=== PATIENT | female | born 1955 | race Caucasian/White ===

== ENCOUNTER → 2024-03-07 07:12 | Outpatient (REF) | payer MEDICARE, OTHER, SELFPAY | LOC: WDC 07:12 | PROVIDERS: ATTENDING PHYSICIAN Internal Medicine | DX: Z12.31 Encounter for screening mammogram for malignant neoplasm of breast (principal) | CPT/HCPCS: 77063; 77067 ==

== ENCOUNTER 2024-11-02 10:54 | Outpatient (RCR) | payer MEDICARE, OTHER, SELFPAY | END 2024-11-02 23:59 | disposition home or self-care (01) | LOC: RPT 10:54 | PROVIDERS: ATTENDING PHYSICIAN Clinical Nurse Specialist Acute Care; FAMILY PHYSICIAN Internal Medicine | DX: Z47.1 Aftercare following joint replacement surgery (principal); M17.11 Unilateral primary osteoarthritis, right knee; Z73.6 Limitation of activities due to disability; R26.89 Other abnormalities of gait and mobility; R20.0 Anesthesia of skin; Z96.651 Presence of right artificial knee joint | CPT/HCPCS: 97110; 97116; 97140; 97162 ==

== ENCOUNTER 2024-11-13 12:45 | Outpatient (RCR) | payer MEDICARE, OTHER, SELFPAY | END 2024-11-14 07:21 | disposition home or self-care (01) | LOC: RPT 12:45 | PROVIDERS: ATTENDING PHYSICIAN Clinical Nurse Specialist Acute Care; FAMILY PHYSICIAN Internal Medicine | DX: Z47.1 Aftercare following joint replacement surgery (principal); Z73.6 Limitation of activities due to disability; M17.11 Unilateral primary osteoarthritis, right knee; R20.0 Anesthesia of skin; R26.89 Other abnormalities of gait and mobility; Z96.651 Presence of right artificial knee joint | CPT/HCPCS: 97110; 97530 ==

== ENCOUNTER 2025-02-26 08:53 | Emergency (ER) | payer MEDICARE, OTHER, SELFPAY ==
[2025-02-26 08:57] VITALS: BP 188/108
--- NOTE | 2025-02-26 09:27 | ED.GENMED ---
History of Present Illness
General
Chief Complaint: Fall
Source: patient
Time Seen by Provider: 02/26/25 09:19
History of Present Illness
History of Present Illness:
This patient is a 69-year-old female who had her left knee replaced very recently and was placed on Eliquis. Her last dose was on Tuesday. In the evening of Tuesday, patient states that she lost her balance and fell, striking her head against the
door frame. She was able to get back up again. She did not want to come to the emergency department that time. However, since the event, she has been worried that she may have missed injury because she did not have an evaluation at that time.
She overall feels well. She was able to participate in PT today and actually came here directly after completing her PT next-door. She denies numbness, tingling, chest pain, shortness of breath, diplopia, dysarthria, imbalance, dizziness,
difficulty walking. She says the sides of her neck feel a little 'stiff' when she turns her head, and this is improving. She does not have a headache. No nausea or vomiting, no photophobia
Past History
Past History
ED Past Medical History: Hypercholesterolemia, Hypothyroidism and Other (AdenoCA lung stage four)
ED Past Surgical History: Orthopedic
Social History
Tobacco: Former smoker (Many years ago)
Alcohol: Occasional
Drug: None
Personal:
Living: with family
Employment: Employed
Phy Exam
Physical Exam
Physical Exam:
GENERAL: Alert , in no apparent distress
EYE: pupils equal and reactive, EOMI, no nystagmus, no photophobia
NECK: Supple, no significant adenopathy, no midline tenderness, spontaneously nods yes and no without hesitation.
ENT: o/p clr, mmm, no parker, no raccoon, no signs of head or facial injury noted on exam.
CARDIAC: Regular rate and rhythm .
LUNGS: Clear breath sounds bilaterally, no acute respiratory distress, no wheezes/rales/rhonchi
ABDOMEN: Soft, without focal tenderness, no r/g, no cvat
NEUROLOGICAL: Alert and oriented, no focal neuro deficits, gait normal, [id number] normal, motor 5 out of 5, sensory intact, cranial nerves II through XII intact
SKIN: Warm and dry, skin intact.
MUSCULOSKELETAL: No edema, well perfused.
PSYCH: Normal and appropriate interaction.
Course
Vital Signs
Initial and Last Documented VS:
Initial Vital Signs
Pulse Resp BP Pulse Ox
95 16 188/108 98
02/26/25 08:57 02/26/25 08:57 02/26/25 08:57 02/26/25 08:57
Last Documented Vital Signs
Temp Pulse Resp BP Pulse Ox
97.9 F 95 16 188/108 98
02/26/25 09:01 02/26/25 08:57 02/26/25 08:57 02/26/25 08:57 02/26/25 08:57
*Critical Care Note
Total Time (30-74mins, 75-104mins- exclusive of procedures): Not Applicable
Update Note
Update Note:
Patient presents to the Emergency Department with recent fall
Number and Complexity of Problems Addressed at the Encounter
� Chronic conditions affecting care:
� Acute Exacerbation and/or Progression of Chronic Illness:
� Differential Diagnosis includes: But not limited to concussion, contusion, subdural hematoma, etc. etc.
Amount and/or Complexity of Data to be Reviewed and Analyzed
� I performed an independent evaluation of and my interpretation is:
EKG:
CT:
Xrays:
Laboratory Studies:
Other:
� Review of other/old records reveals:
� Clinical information was obtained by an independent historian:
� Prescriptions/Medications Considered but not given:
� Further testing considered but not performed:
Risk of Complications and/or Morbidity or Mortality of Patient Management
� Social determinants of health affecting care:
� Discussion with other providers (PCP, Hospitalists, Consultants, etc):
� Escalation of care including admission/observation vs risk of discharge considered: Close history and physical exam here does not raise red flags for the likelihood of intracranial bleed, cervical fracture, etc. She is lucid,
neurologically intact, without findings or complaints to suggest serious injury. Discussed with patient importance of follow-up and reasons return to the ER.
ED Attending Note
-
Portions of this chart may have been created with voice recognition software.� Occasional wrong word or��sound alike� substitutions may have occurred due to the inherent limitations of voice recognition software.
Discharge Plan
Departure
Patient Disposition: Home (Routine Discharge)
Date of Disposition: 02/26/25
Time of Disposition: 09:27
Patient with high blood pressure during this ER visit?: Yes
Condition: Good
Discharge Problem:
Head injury
Instructions: Head Injury in Adults (DC), BLOOD PRESSURE
Prescriptions:
No Action
levothyroxine 125 MCG tablet
120 mcg PO DAILY
Critonizib
250 mg PO BID
Referrals:
Danna Sweet MD [Family Provider] -
Activity Restrictions/Additional Instructions:
IF YOU DEVELOP DIZZINESS, SEVERE HEADACHE, NAUSEA, VOMITING, NUMBNESS, TINGLING, CHANGE IN VISION, OR OTHER WORRISOME SIGNS, PLEASE RETURN TO THE ER IMMEDIATELY!
Interventions
Interventions:
*Risk Screen - Suicide Last Done: 02/26/25 08:57
*General Assessment Last Done: 02/26/25 08:57
*Neglect/Abuse Screening Last Done: 02/26/25 08:57
Discharge Date and Time
Print Language: UPPER SORBIAN
== END 2025-02-26 09:32 | disposition home or self-care (01) ==
LOC: EMR 08:53
PROVIDERS: EMERGENCY PHYSICIAN Emergency Medicine; FAMILY PHYSICIAN Internal Medicine
DX: S09.90XA Unspecified injury of head, initial encounter (principal); W19.XXXA Unspecified fall, initial encounter; E03.9 Hypothyroidism, unspecified; E78.00 Pure hypercholesterolemia, unspecified; W22.09XA Striking against other stationary object, initial encounter; Z87.891 Personal history of nicotine dependence; Z96.652 Presence of left artificial knee joint; Z79.01 Long term (current) use of anticoagulants
CPT/HCPCS: 99282

== ENCOUNTER 2025-02-28 14:01 | Outpatient (RCR) | payer MEDICARE, OTHER, SELFPAY | END 2025-02-28 23:59 | disposition home or self-care (01) | LOC: RPT 14:01 | PROVIDERS: ATTENDING PHYSICIAN Orthopaedic Surgery; FAMILY PHYSICIAN Internal Medicine | DX: Z47.1 Aftercare following joint replacement surgery (principal); Z73.6 Limitation of activities due to disability; R26.2 Difficulty in walking, not elsewhere classified; M62.81 Muscle weakness (generalized); Z96.653 Presence of artificial knee joint, bilateral; R26.89 Other abnormalities of gait and mobility | CPT/HCPCS: 97010; 97110; 97112; 97161; 97530 ==

== ENCOUNTER → 2025-03-11 08:06 | Outpatient (REF) | payer MEDICARE, OTHER, SELFPAY | LOC: WDC 08:06 | PROVIDERS: ATTENDING PHYSICIAN Internal Medicine | DX: Z13.820 Encounter for screening for osteoporosis (principal); Z78.0 Asymptomatic menopausal state; Z12.31 Encounter for screening mammogram for malignant neoplasm of breast | CPT/HCPCS: 77063; 77067; 77080 ==

== ENCOUNTER 2025-03-13 08:56 | Outpatient (RCR) | payer MEDICARE, OTHER, SELFPAY | END 2025-03-13 23:59 | disposition home or self-care (01) | LOC: RPT 08:56 | PROVIDERS: ATTENDING PHYSICIAN Orthopaedic Surgery; FAMILY PHYSICIAN Internal Medicine | DX: Z47.1 Aftercare following joint replacement surgery (principal); Z96.653 Presence of artificial knee joint, bilateral; Z73.6 Limitation of activities due to disability; M62.81 Muscle weakness (generalized); R26.2 Difficulty in walking, not elsewhere classified; R26.89 Other abnormalities of gait and mobility | CPT/HCPCS: 97110; 97530 ==